=== PATIENT | female | born 1995 | race Caucasian/White ===

== ENCOUNTER → 2025-01-06 | Outpatient (CLI) | payer OTHER, SELFPAY ==
[2025-01-06 10:14] LABS: Hematocrit 37.1 % (37-47); Hemoglobin 12.6 g/dL (12.0-15.0); Immature Granulocytes Count 0.010 X10^3/uL (0.0-0.0); Mean Corp Hgb Conc 34.0 g/dL (32-36); Mean Corpuscular Volume 90.5 fL (81-99); Mean Platelet Vol. 10.9 fl (6.2-12.0); NRBC Flagged by Analyzer 0 % (0-5); Platelet Count 185 K/mm3 (150-450); RBC Distribution Width CV 11.9 % (11.6-14.6); RBC Distribution Width SD 39.4 fl (35.1-43.9); Red Blood Count 4.10 M/mm3 (4.2-5.4); White Blood Count 4.2 K/mm3 (4.4-11.0)
[2025-01-06 10:38] LABS: Ammonia 16.9 umol/L (11-51)
[2025-01-06 10:40] LABS: Valproic Acid (Depakene) Level 35 ug/mL (50-100)
[2025-01-06 11:05] LABS: AST(SGOT) 17 U/L (<=31); Alanine Aminotransfer ALT/SGPT 17 U/L (<=34); Albumin, Serum 4.4 g/dL (3.5-5.0); Alkaline Phosphatase 50 U/L (35-104); Anion Gap 13 (5-15); BUN 12 mg/dL (4-19); BUN/Creat Ratio 16.5 RATIO (10-20); Calcium,Total 9.2 mg/dL (7.6-11.0); Carbon Dioxide 19.7 mmol/L (21.0-32.0); Chloride 107 mmol/L (98-108); Globulin 2.6 g/dL (2.2-4.2); Glucose 91 mg/dL (70-99); Potassium 3.4 mmol/L (3.3-5.1); Vitamin B12 620 pg/mL (180-914)
[2025-01-06 11:06] LABS: CRP < 3.00 mg/L (0.0-3.0); Magnesium 2.0 mg/dL (1.5-2.2)
== END | disposition home or self-care (01) ==
DX: G43.909 Migraine, unspecified, not intractable, without status migrainosus (principal)
CPT/HCPCS: 36415; 80053; 80164; 80201; 82140; 82607; 83735; 85025; 85652; 86140

== ENCOUNTER → 2025-01-27 | Outpatient (CLI) | payer OTHER, SELFPAY ==
--- NOTE | 2025-01-27 08:30 | MRI_ITS ---
PROCEDURE: BRAIN WITHOUT CONTRAST 01/27/2025 REASON FOR EXAM: MIGRAINE HEADACHES TECHNIQUE: Procedure Code: MRIBR Modality: MR Procedure: BRAIN WITHOUT CONTRAST Multiplanar and multisequence images were obtained. COMPARISON: None. FINDINGS: Brain: Diffusion-weighted images demonstrate no area of restricted diffusion. A small right frontal arachnoid cyst is seen. A mildly enlarged pituitary gland is seen, with convex superior margin, measured at approximately 11.5 x 12.3 x 8.6 mm. No extra-axial fluid collection is seen. No orbital pathology is noted. Internal auditory canals appear symmetric and within the normal range. Ventricles: Normal. Sinuses: Minimal mucosal thickening. Mastoids: Clear. MRI/Brain without Contrast IMPRESSION: 1. A mildly enlarged pituitary gland is seen, with convex superior margin, giselle ured at approximately 11.5 x 12.3 x 8.6 mm. Consider clinical and laboratory correlation. 2. Small right frontal arachnoid cyst. 3. No acute process is otherwise noted. Reading Location: [facility]
== END | disposition home or self-care (01) ==
LOC: OPMRI 07:59
DX: G43.909 Migraine, unspecified, not intractable, without status migrainosus (principal)
CPT/HCPCS: 70551

== ENCOUNTER → 2025-01-30 | Outpatient (CLI) | payer OTHER, SELFPAY ==
[2025-01-30 10:57] LABS: CORTISOL AM 11.60 ug/dL (6.02-18.40); Follicle Stimulating Hormone 6.4 mIU/mL
[2025-02-02 09:09] LABS: PROLACTIN 13.6 ng/mL (4.8-33.4); Testosterone, % Free 1.05 % (0.50-2.80); Testosterone, Free 0.28 ng/dL (0.10-0.85)
== END | disposition home or self-care (01) ==
LOC: MTLAB 09:05
DX: G43.909 Migraine, unspecified, not intractable, without status migrainosus (principal); E23.6 Other disorders of pituitary gland
CPT/HCPCS: 36415; 82024; 82533; 82670; 83001; 83002; 83003; 84146; 84305; 84402; 84403; 84439; 84443

== ENCOUNTER → 2025-02-14 | Outpatient (CLI) | payer OTHER, SELFPAY ==
[2025-02-15 15:08] LABS: ANTINUCLEAR ANTIBODIES DIRECT Negative (Negative)
== END | disposition home or self-care (01) ==
LOC: MTLAB 10:21
DX: G43.909 Migraine, unspecified, not intractable, without status migrainosus (principal)
CPT/HCPCS: 36415; 86038; 86225